=== PATIENT | female | born 2000 | race Caucasian/White ===

== ENCOUNTER → 2019-01-11 17:07 | Outpatient (CLI) | payer OTHER, SELFPAY ==
[2019-01-11 15:08] VITALS: BMI 35.1
[2019-01-11 22:02] LABS: Chlamydia Trachomatis by PCR Negative (Negative); Neisserai gonorrhoeae by PCR Negative (Negative); Probe Check PASS; Sample Adequacy Control PASS; Specimen Processing Control PASS
== END ==
PROVIDERS: Referring Provider Nurse Practitioner Women's Health; Visit Provider Nurse Practitioner Women's Health
DX: N89.8 Other specified noninflammatory disorders of vagina (principal); Z11.3 Encounter for screening for infections with a predominantly sexual mode of transmission
CPT/HCPCS: 87070; 87205; 87491; 87591